=== PATIENT | male | born 1970 | race Caucasian/White ===

== ENCOUNTER → 2021-04-23 | Outpatient (CLI) | payer OTHER ==
[~2021-04-23] MED LIST: ALEVE220 MG PO; BORON CITRATE1 GM PO; LECITHIN1200 M1 PO; LOSARTAN-HCTZ1 EACH PO; OCUVEL CAPSULE1 EACH PO; OMEGA-31000 M1 PO; OMEPRAZOLE40 MG PO; TAZTIA XT300 M1 PO; TUMS PO; UNICOMPLEX M TA1 TA1 PO; VITAMIN D5000 UNIT PO; VITAMINC500 PO
== END ==
LOC: CAT 13:46
PROVIDERS: ATTEND Internal Medicine Cardiovascular Disease
DX: Z13.6 Encounter for screening for cardiovascular disorders (principal); I25.10 Atherosclerotic heart disease of native coronary artery without angina pectoris